=== PATIENT | female | born 1960 | race Caucasian/White ===

== ENCOUNTER → 2017-01-23 | Outpatient (CLI) | payer BC | END | disposition home or self-care (01) | LOC: GMAM 10:42 | PROVIDERS: ATTEND Family Medicine | DX: Z00.00 Encounter for general adult medical examination without abnormal findings (principal) ==

== ENCOUNTER → 2017-04-01 | Outpatient (CLI) | payer BC ==
--- NOTE | 2017-04-01 10:07 | MAM ---
History: Well woman exam. Date of exam: 04/01/2017 Services provided: Bilateral full field digital screening mammography. CAD, the images were reviewed with R2 computer aided detection. FINDINGS: Glandular tissue is scattered nodular contour with increased mammographic density. Comparison with 2013 study. No dominant mass, architectural distortion or clustered microcalcification. IMPRESSION: Benign exam Recommendation: Routine annual mammography BIRAD CATEGORY: 2 BENIGN Electronically signed by: Padmini Nguyen MD 04/01/2017 10:05 AM CDT
== END | disposition home or self-care (01) ==
LOC: MAMMO 09:09
PROVIDERS: ATTEND Family Medicine
DX: Z12.31 Encounter for screening mammogram for malignant neoplasm of breast (principal)

== ENCOUNTER → 2017-05-28 | Outpatient (CLI) | payer BC | END | disposition home or self-care (01) | LOC: GMAM 10:45 | PROVIDERS: ATTEND Family Medicine | DX: E03.9 Hypothyroidism, unspecified (principal) ==

== ENCOUNTER → 2017-08-14 | Outpatient (CLI) | payer BC | END | disposition home or self-care (01) | LOC: GMAM 10:56 | PROVIDERS: ATTEND Family Medicine | DX: E03.9 Hypothyroidism, unspecified (principal) ==

== ENCOUNTER 2017-09-09 15:18 | Emergency (ER) | payer BC ==
[2017-09-09 15:37] VITALS: TEMP 97.1
[2017-09-09] MEDS ORDERED: ASPIRIN (CHEWABLE) 81 MG TAB PO ONE (15:39)
--- NOTE | 2017-09-09 15:44 | ED.PDOC ---
History of Present Illness - General Chief Complaint: Chest Pain/NH Stated Complaint: chest pain Time Seen by Provider: 09/09/17 15:32 Source: patient, RN notes reviewed, Vital Signs reviewed Exam Limitations: no limitations - History of Present Illness Initial Comments: Patient comes in with c/o chest pain that starts @ ~03:00 today. She reports she was up for about an hour but then went back to sleep. She noticed the pain again when she woke up. The pain is substernal and radiates to her back. Intermittent - "just a pain, not sharp". No nausea, SOB or diaphoresis. One similar episode ~3 years ago - determines to be related to HTN. No problems since. Non-smoker. No family Hx of CAD. Timing/Duration: 7-24 hours Severity/Quality: mild, dull Location: substernal Chest Pain Radiation: back Activities at Onset: sleep Prior Chest Pain/Cardiac Workup: non-cardiac Improving Factors: nothing Worsening Factors: nothing Nitro Today/Relief: no nitro taken today Aspirin Treatment Today: 81 mg x 4, provided by ED Associated Symptoms: back pain Allergies/Adverse Reactions: Allergies Sulfamethoxazole w/Trimethoprim [From Bactrim] Allergy (Verified 07/31/14 14:05) Home Medications: Ambulatory Orders Losartan Potassium [Cozaar] 50 mg PO DAILY #30 tab 08/01/14 Estradiol 1 mg PO DAILY 09/09/17 Levothyroxine Sodium [Synthroid] 100 mcg PO DAILY 09/09/17 Rosuvastatin Calcium [Crestor] 5 mg PO MOWEFR 09/09/17 Sertraline HCl 50 mg PO DAILY 09/09/17 Review of Systems - Review of Systems Constitutional: States: no symptoms reported EENTM: States: no symptoms reported Respiratory: States: no symptoms reported. Denies: short of breath Cardiology: States: see HPI, chest pain. Denies: palpitations Gastrointestinal/Abdominal: States: no symptoms reported, nausea Musculoskeletal: States: see HPI, back pain Skin: States: no symptoms reported Neurological: States: no symptoms reported All other Systems: No Change from Baseline Past Medical History (General) - Patient Medical History Hx Congestive Heart Failure: No Hx Hypertension: Yes Hx Thyroid Disease: Yes Hx Diabetes: No Hx MRSA: No Surgical History: Hysterectomy - Vaccination History Hx Influenza Vaccination: Yes Hx Pneumococcal Vaccination: No - Social History Hx Tobacco Use: No Family Medical History - Family History Mother Family History: No Known Physical Exam - Physical Exam General Appearance: Alert, Comfortable, No apparent distress, Well Developed, Well Groomed, Well Hydrated, Well Nourished Neck: supple, normal inspection Respiratory: chest non-tender, lungs clear, normal breath sounds, no respiratory distress, no accessory muscle use Cardiovascular/Chest: normal peripheral pulses, regular rate, rhythm, no edema, no gallop, no JVD, no murmur Peripheral Pulses: radial,right: 2+, radial,left: 2+, dorsalis pedis,right: 2+, dorsalis pedis,left: 2+ Gastrointestinal/Abdominal: normal bowel sounds, non tender, soft, no organomegaly, no pulsatile mass Extremity: normal inspection Neurologic: alert, normal mood/affect, oriented x 3 Skin Exam: normal color, warm/dry Comments: Vital Signs 09/09/17 09/09/17 09/09/17 15:34 15:40 15:41 Temperature 97.1 F L Pulse Rate 74 Pulse Rate [ 80 74 74 Left Brachial] Respiratory 16 Rate Blood Pressure 165/97 [Left Arm] O2 Sat by Pulse 99 Oximetry Progress - Progress Progress: 09/09/17 16:14 Patient noticed some improvement with 1st SLNTG, pain down to 4/10. No change with 2nd SLNTG. BP improved @ 134/83. Will give GI cocktail. 09/09/17 19:06 Pain free. 2nd set of cardiac enzymes is normal. Will d/c home and follow up with PCP - Results/Orders Results/Orders: Laboratory Tests 09/09/17 09/09/17 09/09/17 15:35 15:35 15:35 WBC 6.2 RBC 4.38 Hgb 13.5 Hct 39.9 MCV 91.2 MCH 30.9 MCHC 33.8 RDW 12.8 Plt Count 230 MPV 8.4 Absolute Neuts (auto) 3.30 Absolute Lymphs (auto) 2.20 Absolute Monos (auto) 0.50 Absolute Eos (auto) 0.20 Absolute Basos (auto) 0.00 Neutrophils % 53.1 Lymphocytes % 34.8 Monocytes % 8.2 Eosinophils % 3.2 Basophils % 0.7 D-Dimer, Quantitative < 200 Sodium 136 Potassium 3.9 Chloride 102 Carbon Dioxide 27 Anion Gap 10.9 L BUN 16 Creatinine 1.05 BUN/Creatinine Ratio 15.2 Random Glucose 109 H Serum Osmolality 273.7 L Calcium 9.4 Total Bilirubin 0.6 AST 26 ALT 24 Alkaline Phosphatase 43 Creatine Kinase 97 CK-MB (CK-2) 1.6 CK-MB (CK-2) % Not Reportable Troponin I < 0.02 Serum Total Protein 7.3 Albumin 4.6 Globulin 2.7 Albumin/Globulin Ratio 1.7 09/09/17 18:40 WBC RBC Hgb Hct MCV MCH MCHC RDW Plt Count MPV Absolute Neuts (auto) Absolute Lymphs (auto) Absolute Monos (auto) Absolute Eos (auto) Absolute Basos (auto) Neutrophils % Lymphocytes % Monocytes % Eosinophils % Basophils % D-Dimer, Quantitative Sodium Potassium Chloride Carbon Dioxide Anion Gap BUN Creatinine BUN/Creatinine Ratio Random Glucose Serum Osmolality Calcium Total Bilirubin AST ALT Alkaline Phosphatase Creatine Kinase 90 CK-MB (CK-2) 1.5 CK-MB (CK-2) % Not Reportable Troponin I < 0.02 Serum Total Protein Albumin Globulin Albumin/Globulin Ratio - EKG/XRAY/CT EKG: Sinus, nonspecific ST T wave Chg, Unchanged from - 07/31/14 Comments: Rate 70 XRAY: chest - Normal per Radiologist Departure - Departure Clinical Impression: Chest pain in adult Time of Disposition: 19:07 Disposition: Discharge to Home or Self Care Condition: Good Departure Forms: ED Discharge - Pt. Copy, Patient Portal Self Enrollment Instructions: DI for Atypical Chest Pain Diet: resume usual diet Activity: increase activity as tolerated Referrals: Luis Enrique Ordoñez MD [Primary Care Provider] - 1-2 Weeks Home Medications: Ambulatory Orders Losartan Potassium [Cozaar] 50 mg PO DAILY #30 tab 08/01/14 Estradiol 1 mg PO DAILY 09/09/17 Levothyroxine Sodium [Synthroid] 100 mcg PO DAILY 09/09/17 Rosuvastatin Calcium [Crestor] 5 mg PO MOWEFR 09/09/17 Sertraline HCl 50 mg PO DAILY 09/09/17
[2017-09-09] MEDS: NITROGLYCERIN 0.4 MG 25 EA TAB SL ONE ×2 (15:53→16:09)
--- NOTE | 2017-09-09 16:01 | RAD ---
EXAM DESCRIPTION: Chest,1 View CLINICAL HISTORY: chest pain COMPARISON: 01 August 2014 TECHNIQUE: AP portable chest FINDINGS: The lungs are clear. There is no infiltrate or effusion. The heart is normal size. IMPRESSION: Normal portable chest Electronically signed by: Tavo Jarrett MD 09/09/2017 3:59 PM CDT
[2017-09-09] MEDS ORDERED: LIDOCAINE VIS-MYLANTA 30 ML UD PO ONE (16:14)
[2017-09-09 18:54] VITALS: O2SAT 99
[2017-09-09 19:47] VITALS: BP 141/86
== END 2017-09-09 19:46 | disposition home or self-care (01) ==
LOC: ER 15:18
DX: R07.9 Chest pain, unspecified (principal); I10 Essential (primary) hypertension; E07.9 Disorder of thyroid, unspecified; Z79.899 Other long term (current) drug therapy; Z88.2 Allergy status to sulfonamides

== ENCOUNTER → 2017-12-09 | Outpatient (CLI) | payer BC | END | disposition home or self-care (01) | LOC: GMAM 10:55 | PROVIDERS: ATTEND Family Medicine | DX: E03.9 Hypothyroidism, unspecified (principal); I10 Essential (primary) hypertension; R73.9 Hyperglycemia, unspecified ==

== ENCOUNTER → 2018-08-17 | Outpatient (CLI) | payer BC | LOC: GMAM 11:21 | PROVIDERS: ATTEND Family Medicine | DX: E03.9 Hypothyroidism, unspecified (principal) ==

== ENCOUNTER → 2018-12-22 | Outpatient (CLI) | payer BC | LOC: GMAM 10:44 | PROVIDERS: ATTEND Family Medicine | DX: E03.9 Hypothyroidism, unspecified (principal); E55.9 Vitamin D deficiency, unspecified ==

== ENCOUNTER → 2019-08-12 | Outpatient (CLI) | payer BC | LOC: GMAM 10:37 | PROVIDERS: ATTEND Family Medicine | DX: E03.9 Hypothyroidism, unspecified (principal) ==

== ENCOUNTER → 2020-04-13 | Outpatient (CLI) | payer BC | LOC: GMAM 11:13 | PROVIDERS: ATTEND Family Medicine | DX: E03.9 Hypothyroidism, unspecified (principal); I10 Essential (primary) hypertension; E78.2 Mixed hyperlipidemia; E55.9 Vitamin D deficiency, unspecified ==

== ENCOUNTER → 2020-12-05 | Outpatient (CLI) | payer BC | LOC: GMAM 14:10 | PROVIDERS: ATTEND Family Medicine | DX: E03.9 Hypothyroidism, unspecified (principal); E55.9 Vitamin D deficiency, unspecified; R73.9 Hyperglycemia, unspecified; I10 Essential (primary) hypertension; E78.2 Mixed hyperlipidemia ==